=== PATIENT | male | born 1980 | race Caucasian/White ===

== ENCOUNTER 2021-04-15 12:10 | Emergency (ER) | payer OTHER ==
[~2021-04-15] VITALS: Ht 175.3 cm; Wt 101.6 kg
[2021-04-15] MEDS ORDERED: COQ-10100 MG PO (12:24)
[2021-04-15] MEDS ORDERED: CRESTOR10 MG PO (12:24)
[2021-04-15 12:32] LABS: ABSOLUTE EOSINOPHILS 0.1 thou/uL (0.0-0.7); ABSOLUTE LYMPHOCYTES 1.6 thou/uL (0.8-5.3); ABSOLUTE MONOCYTES 0.9 thou/uL (0.0-1.2); ABSOLUTE NEUTROPHILS 3.7 thou/uL (1.6-8.1); BASOPHILS 0.6 %; EOSINOPHILS 0.8 %; HEMATOCRIT 45.4 % (42.0-52.0); HEMOGLOBIN 16.1 gm/dL (14.0-18.0); LYMPHOCYTES 25.3 %; MCH 31.8 pg (26.0-34.0); MCHC 35.6 g/dL (28.0-37.0); MCV 89.3 fL (80.0-100.0); MPV 7.8 fl. (7.2-11.1); NUCLEATED RBCS 0 /100WBC; PLATELET COUNT* 248 thou/uL (150-400); POLYS 59.3 %; RBC 5.08 mil/uL (4.50-6.00); RDW-CV 12.3 % (10.5-14.5); WBC 6.3 thou/uL (4.0-11.0)
[2021-04-15 12:41] LABS: CALCIUM 9.5 mg/dL (8.5-10.1); CREATININE 1.1 mg/dL (0.6-1.3); POTASSIUM 3.4 mmol/L (3.5-5.1)
[2021-04-15 12:45] LABS: ALBUMIN 4.9 g/dL (3.4-5.0); TOTAL BILIRUBIN 1.1 mg/dL (<0.1-1.0); TOTAL PROTEIN 9.3 g/dL (6.4-8.2)
[2021-04-15 13:57] VITALS: BP 130/88
--- NOTE | 2021-04-15 15:34 | EKG ---
[place] [address] ELECTROCARDIOGRAM REPORT Name: JASON CLEVELAND Room: [facility]#: [id number] Admission: 04/15/21 Attend Phys: Discharge: 04/15/21 Date of : 80 Date of Service: 04/15/21 1219 Report #: [id number] THIS REPORT FOR: //name// 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 04/15/21 1534 1219 1219 James Andino MD, [facility] /EPI
== END 2021-04-15 13:58 | disposition home or self-care (01) ==
LOC: M.ERS 12:10
PROVIDERS: Emergency Medicine Emergency Medical Services
DX: R00.2 Palpitations (principal); E78.00 Pure hypercholesterolemia, unspecified; Z79.899 Other long term (current) drug therapy